=== PATIENT | male | born 1950 | race Caucasian/White ===

== ENCOUNTER 2018-01-28 01:52 | Emergency (ER) | payer MEDICARE, MEDICAID ==
[~2018-01-28] VITALS: Ht 167.6 cm; Wt 79.4 kg
--- NOTE | 2018-01-28 03:10 | NUR ---
RECEIVED A 67Y/O MALE A/O X3 AMBULATORY TO BED, BIB SON, C/O BACK PAIN X 10 DAYS S/P PICKING TRASH, PAIN WORSE TODAY, NO SOB NO DISTRESS V/S STABLE AFEBRILE WILL CONTINUE TO MONITOR PTS.
[2018-01-28] MEDS ORDERED: DEXAMETHASONE SOD PHOSPHATE 10 MG/ML VIAL IV ONE (03:30)
[2018-01-28] MEDS ORDERED: ONDANSETRON HCL/PF - ER 4 MG/2 ML VIAL IV ONE (03:30)
[2018-01-28] MEDS ORDERED: MORPHINE SULFATE INJ 2 MG/ML DISP.SYRIN IV ONE (03:30)
--- NOTE | 2018-01-28 03:30 | NUR ---
PTS WENT TO CT LUMBAR SPINE
[2018-01-28] MEDS ORDERED: ONDANSETRON HCL/PF 4 MG/2 ML VIAL ONE (03:33)
[2018-01-28] MEDS ORDERED: DEXAMETHASONE SOD PHOSPHATE 10 MG/ML VIAL ONE (03:33)
[2018-01-28] MEDS ORDERED: MORPHINE SULFATE INJ 4 MG/ML DISP.SYRIN ONE (03:41)
--- NOTE | 2018-01-28 03:44 | NUR ---
RECEIVED 4MG MORPHINE I VIAL FROM 3RD FLOOR [facility].
--- NOTE | 2018-01-28 03:51 | NUR ---
SEEN BY ER WITH ORDER FOR CT
--- NOTE | 2018-01-28 03:53 | NUR ---
MORPHINE 4MG IV GIVEN ORDERED
[2018-01-28 05:10] VITALS: BP 123/80
== END 2018-01-28 05:08 | disposition home or self-care (01) ==
LOC: ER 01:56
DX: M54.5 Low back pain (principal); M51.36 Other intervertebral disc degeneration, lumbar region; I10 Essential (primary) hypertension
CPT/HCPCS: 72131-TC; A4606; J1100; J2270; J2405; Z7610